=== PATIENT | female | born 1950 | race Caucasian/White ===

== ENCOUNTER → 2024-06-16 15:52 | Outpatient (REF) | payer MEDICARE, SELFPAY | LOC: RAD 15:52 | PROVIDERS: ATTENDING PHYSICIAN Urology; FAMILY PHYSICIAN Family Medicine | DX: N39.41 Urge incontinence (principal); R15.9 Full incontinence of feces; N81.6 Rectocele; N39.0 Urinary tract infection, site not specified; M62.89 Other specified disorders of muscle | CPT/HCPCS: 76770; 76856 ==

== ENCOUNTER 2024-08-03 06:32 | Day surgery (SDC) | payer OTHER, SELFPAY ==
[2024-07-30 08:43] LABS: Hematocrit 37.1 % (37.0-47.0); Hemoglobin 12.2 g/dL (12.0-16.0); Mean Corp Hgb Conc. 32.9 g/dL (33.0-37.0); Mean Corpuscular Hgb 31.6 pg (27.0-31.0); Mean Corpuscular Volume 96.1 fL (81.0-99.0); Mean Platelet Volume 10.7 fL (7.4-10.4); Platelet Count 212 10^3/uL (130-400); Red Blood Cell Count 3.86 10^6/uL (4.20-5.40)
[2024-07-30 09:09] LABS: Blood Urea Nitrogen 14 mg/dl (7-17); Calcium 8.6 mg/dl (8.4-10.2); Carbon Dioxide 28 mmol/L (22-30); Chloride 102 mmol/L (98-107); Glucose 141 mg/dl (70-99); Potassium 4.4 mmol/L (3.5-5.1); Sodium 140 mmol/L (135-145)
--- NOTE | 2024-07-30 13:22 | PTCARENOTE ---
GFR 52.40 collected on 07/30/24; Sonia at 's office was notified.
--- NOTE | 2024-07-30 14:04 | PTCARENOTE ---
Addendum entered by Charisse Duff RN 07/30/24 14:11:
Dr. Srivastava requested medical clearance- Sonia @ Dr. Wallace office notified
Original Note:
Patients 07/30 ECG abnormal- reviewed by Dr. Srivastava-cardiac clearance requested- Sonia @ Dr. Wallace office notified
[2024-07-30 14:08] VITALS: BMI 28.8
[2024-08-03] VITALS (10 sets, daily range): BP systolic 106–141; BP diastolic 51–73; BMI 28.8
[2024-08-03 09:52] LABS: Glucose - Point of Care 130 mg/dl (70-99)
[2024-08-03] MEDS: Pyridium 200 MG PO (09:56)
[2024-08-03] MEDS: HEPARIN 5000 UNITS SC (09:56)
[2024-08-03] MEDS: NORMOSOL-R/PLASMALYTE-A 1000 IV (10:02)
[2024-08-03 15:39] LABS: Glucose - Point of Care 206 mg/dl (70-99)
[2024-08-03] MEDS: NOVOLOG vial 1 UNITS SC (15:50)
[2024-08-03 16:16] LABS: Hematocrit 38.3 % (37.0-47.0); Hemoglobin 12.3 g/dL (12.0-16.0)
[2024-08-03 16:31] LABS: Blood Urea Nitrogen 21 mg/dl (7-17); Carbon Dioxide 21 mmol/L (22-30); Chloride 99 mmol/L (98-107); Estimated Creatinine Clearance 47 ml/min; Glucose 221 mg/dl (70-99); Potassium 4.2 mmol/L (3.5-5.1); Sodium 136 mmol/L (135-145); eGFR 58.75
[2024-08-03] MEDS: NSS 1000 IV (16:33)
--- NOTE | 2024-08-03 16:38 | SUR.PHASEI ---
Dr Srivastava in to see pt in PACU and pt ok to go floor without continuos pulse ox per Dr Srivastava. Pt is not having any periods of apnea and O2 sat 95% on 2l O2. Pt has an inspire device.
--- NOTE | 2024-08-03 17:00 | PTCARENOTE ---
Received patient from PACU. Assessment completed and documented in shift assessment.
Patient is pleasant, AAOX4. 2L NC, Lungs CTA. No Abnormal Heart Sounds, + Pulses. R FA IV infusing NS 125mL/hour. 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 Skin otherwise intact. 16F Harvey draining orange clear urine.
[2024-08-03 17:46] LABS: Glucose - Point of Care 214 mg/dl (70-99)
[2024-08-03] MEDS: TORADOL 15 MG IV ×2 (18:19→22:19)
[2024-08-03] MEDS: LOVENOX 40 MG SC (18:20)
[2024-08-03] MEDS: TAMBOCOR 50 MG PO (18:20)
[2024-08-03] MEDS: NOVOLOG FLEXPEN-LOW RESISTANCE 2 UNITS SC (18:20)
[2024-08-03] MEDS: NOVOLOG FLEXPEN-LOW RESISTANCE SC (18:20)
[2024-08-03 22:51] LABS: Glucose - Point of Care 204 mg/dl (70-99)
[2024-08-03] MEDS: ROXICODONE 5 MG PO (22:53)
[2024-08-04] MEDS: NSS 1000 IV (00:41)
[2024-08-04] MEDS: TAMBOCOR PO (05:15)
[2024-08-04] MEDS: TAMBOCOR 50 MG PO (05:39)
[2024-08-04] MEDS: TORADOL 15 MG IV ×2 (05:39→10:43)
--- NOTE | 2024-08-04 06:48 | PTCARENOTE ---
Pt aaox3, cooperative. vaginal packing and wilkins removed as ordered.
--- NOTE | 2024-08-04 07:12 | W.PN.GYN ---
Today's Communication / Plan
-
1. ambulate
2. TOV: pending
3. Postop labs: pending
Physician Note
-
Assessment and Plan:
74 yo woman POD 1 s/p robotic ANNABEL, sacrocolpopexy, posterior colporrhaphy, cystoscopy: patient is doing well this morning, minimal pain and passing flatus.
Postoperative Care
-Regular diet
-DVT PPX: Lovenox, SCDs, ambulation
-ANNABEL: recommend frequent ambulation, tolerating diet
-CBC: postop day 0 12.3-->pod 1 pending
-BMP: pending
-UOP: adequate overnight
-Vaginal packing removed
-TOV: pending, wilkins removed
-T2DM: SSI, restart home meds at time of discharge
Dispo:
-Plan to d/c home today after labs
Subjective
no acute events overnight
patient does have postop abdominal pain however controlled with medications
denies any nausea or vomiting
denies any fevers/chills
minimal vaginal bleeding overnight, packing removed
passing flatus this morning, no bowel movement
wilkins removed at 5am, has not voided
tolerating regular diet, had light dinner
Objective:
Intake and Output
08/02/24 08/03/24 08/04/24 08/05/24
06:59 06:59 06:59 06:59
Intake Total 580 / 2080 1500 / 1500
Output Total 420 / 1020 600 / 600
Balance 160 / 1060 900 / 900
Intake:
Oral fluids 480 / 480
IV fluids (Total) 100 / 1600 1500 / 1500
Normosol 100 / 100
Output:
Urine, Wilkins 420 / 1020 600 / 600
Vital Signs
Temp Pulse Resp BP Pulse Ox
98.6 F 85 16 106/54 94
08/03/24 22:49 08/03/24 22:49 08/03/24 22:49 08/03/24 22:49 08/03/24 22:49
Labs: pending
Exam:
Incisions: clean, dry, intact
Abdomen: soft, mild tenderness, non-distended, no rebound tenderness
: no active bleeding, packing removed.
[2024-08-04 07:36] VITALS: BP 100/45
[2024-08-04 07:49] LABS: Glucose - Point of Care 153 mg/dl (70-99)
[2024-08-04] MEDS: NOVOLOG FLEXPEN-LOW RESISTANCE 1 UNITS SC (08:11)
[2024-08-04] MEDS: NSS IV (08:11)
[2024-08-04] MEDS: PROTONIX 40 MG PO (08:11)
[2024-08-04 10:31] LABS: Hematocrit 31.8 % (37.0-47.0); Hemoglobin 10.2 g/dL (12.0-16.0); Mean Corp Hgb Conc. 32.1 g/dL (33.0-37.0); Mean Corpuscular Hgb 31.2 pg (27.0-31.0); Mean Corpuscular Volume 97.2 fL (81.0-99.0); Platelet Count 255 10^3/uL (130-400); Red Blood Cell Count 3.27 10^6/uL (4.20-5.40); White Blood Cell Count 13.8 10^3/uL (4.8-10.8)
[2024-08-04 10:44] LABS: Blood Urea Nitrogen 29 mg/dl (7-17); Carbon Dioxide 22 mmol/L (22-30); Chloride 100 mmol/L (98-107); Estimated Creatinine Clearance 47 ml/min; Potassium 4.6 mmol/L (3.5-5.1); Sodium 134 mmol/L (135-145)
[2024-08-04 11:28] VITALS: BP 118/45
[2024-08-04 11:38] LABS: Glycohemoglobin (HgbA1c) 5.9 % (4.0-5.6)
--- NOTE | 2024-08-04 11:44 | CM ---
Met with pt at bedside
Pt reports she lives alone in a 2 story home; 3 steps to enter, 15 steps to 2nd fl. + 1/2 bath on FF
Retired, independent, drives
DME - none
SNF/HH - no past hx
Has ride at discharge
PCP - Caro Villafana
Pharm - [facility] on [address]
Plan - home no needs
[2024-08-04 12:42] LABS: Glucose - Point of Care 164 mg/dl (70-99)
[2024-08-04] MEDS: NOVOLOG FLEXPEN-LOW RESISTANCE SC (12:57)
[2024-08-04 13:02] VITALS: BP 104/47
== END 2024-08-04 14:32 | disposition home or self-care (01) ==
LOC: SDS 06:32
PROVIDERS: ATTENDING PHYSICIAN Obstetrics & Gynecology; FAMILY PHYSICIAN Family Medicine; REFERRING PHYSICIAN Internal Medicine Cardiovascular Disease
PROC: 0JQC3ZZ Repair Pelvic Region Subcutaneous Tissue and Fascia, Percutaneous Approach (ICD-10-PCS; 2024-08-03)
PROC: 0DNU4ZZ Release Omentum, Percutaneous Endoscopic Approach (ICD-10-PCS; 2024-08-03)
PROC: 8E0W4CZ Robotic Assisted Procedure of Trunk Region, Percutaneous Endoscopic Approach (ICD-10-PCS; 2024-08-03)
PROC: 0USG4ZZ Reposition Vagina, Percutaneous Endoscopic Approach (ICD-10-PCS; 2024-08-03)
DX: N99.3 Prolapse of vaginal vault after hysterectomy (principal); N73.6 Female pelvic peritoneal adhesions (postinfective)
CPT/HCPCS: 57250; 57425; 49329; 36415; 80048; 80051; 82565; 82962; 83036; 84520; 85014; 85018; 85027; 86850; 86900; 86901; 93005; C1763